=== PATIENT | female | born 1945 | race Caucasian/White ===

== ENCOUNTER 2016-06-23 13:39 | Outpatient (CLI) | payer MEDICARE ==
[2016-06-23 13:56] LABS: #Basophils 0.2 thou/uL (0.0-0.2); #Eosinphils 0.2 thou/uL (0.0-0.7); #Lymphocytes 3.7 thou/uL (1.20-3.40); #Monocytes 0.9 thou/uL (0.11-0.59); #Neutrophils 3.4 thou/uL (1.40-6.50); %Basophils 2.2 % (0.0-1.0); %Eosinophils 2.3 % (0.0-10.0); %Lymphocytes 44.1 % (21.0-51.0); %Monocytes 10.9 % (0.0-10.0); %Neutrophils 40.6 % (42.0-75.0); Hemoglobin 14.8 g/dL (12.0-16.0); Mean Corpuscular HGB CONC 34.4 g/dL (32.0-36.0); Mean Corpuscular Hemoglobin 32.5 pg (27.0-31.0); Mean Corpuscular Volume 94.5 fl (81.0-99.0); Mean Platelet Volume 8.5 fL (7.4-10.4); Platelet Count 190 thou/uL (130-400); RBC Distribution Width 11.7 % (11.5-14.5); Red Blood Cell (RBC) Count 4.56 mill/uL (4.20-5.40); White Blood Cell (WBC) Count 8.3 thou/uL (4.8-10.8)
[2016-06-23 14:22] LABS: ALT (SGPT) 17 U/L (0-55); AST (SGOT) 18 U/L (5-34); Albumin 4.1 g/dL (3.4-4.8); Alkaline Phosphatase 82 U/L (40-150); Anion Gap 16 mmol/L (10-20); BUN (Urea Nitrogen) 12 mg/dL (9.8-20.1); Bilirubin, Total 0.6 mg/dL (0.2-1.2); Calc. Creatinine Clearance 0 mL/min (70-130); Calcium 9.4 mg/dL (7.8-10.44); Carbon Dioxide 26 mmol/L (23-31); Cardiac Risk 3.8 (Less than 4.5); Chloride 99 mmol/L (98-107); Cholesterol 305 mg/dL (< 200 Desired); Estimated GFR-MDRD 80; Globulin 2.9 g/dL (2.4-3.5); Glucose 92 mg/dL (80-115); HDL Cholesterol 81 mg/dL (>60 Neg Risk); LDL Cholesterol, Calculated 185 mg/dL; Sodium 137 mmol/L (136-145); Triglycerides 195 mg/dL (Less than 150)
[2016-06-23 14:43] LABS: Free T4 (Free Thyroxine) 1.07 ng/dL (0.70-1.48); Thyroid Stimulating Hormone 9.451 uIU/mL (0.35-4.94)
== END 2016-06-23 13:40 | disposition home or self-care (01) ==
LOC: MADLAB 13:39
PROVIDERS: ATTEND Family Medicine
DX: E78.2 Mixed hyperlipidemia (principal); E03.4 Atrophy of thyroid (acquired); R53.83 Other fatigue; I10 Essential (primary) hypertension
CPT/HCPCS: 36415; 80053; 80061; 84439; 84443; 85025

== ENCOUNTER 2018-02-27 14:45 | Outpatient (CLI) | payer MEDICARE ==
[2018-02-27 16:28] LABS: Thyroid Stimulating Hormone 6.446 uIU/mL (0.35-4.94)
[2018-02-27 22:29] LABS: Free T4 (Free Thyroxine) 0.97 ng/dL (0.70-1.48)
== END 2018-02-27 14:46 | disposition home or self-care (01) ==
LOC: MADLAB 14:45
PROVIDERS: ATTEND Family Medicine
DX: E03.4 Atrophy of thyroid (acquired) (principal)
CPT/HCPCS: 36415; 84439; 84443; 84481